=== PATIENT | female | born 1970 | race Caucasian/White ===

== ENCOUNTER → 2021-02-20 | Outpatient (CLI) | payer SELFPAY | LOC: CT 14:00 | DX: R10.11 Right upper quadrant pain (principal) | CPT/HCPCS: 71250 ==

== ENCOUNTER → 2021-05-15 | Outpatient (CLI) | payer SELFPAY | LOC: HEART 5 10:50 | DX: J41.0 Simple chronic bronchitis (principal) | CPT/HCPCS: 94010 ==

== ENCOUNTER → 2022-02-17 | Outpatient (CLI) | payer SELFPAY | LOC: CT 12:16 | DX: R91.8 Other nonspecific abnormal finding of lung field (principal) | CPT/HCPCS: 71250 ==